=== PATIENT | female | born 1990 | race Caucasian/White ===

== ENCOUNTER → 2017-12-06 12:22 | Outpatient (CLI) | payer OTHER, SELFPAY ==
[2017-12-06 12:49] LABS: Absolute Neutrophil Count 8.1 X10^3/uL (2.0-7.7); Basophil# 0.01 X10^3/uL; Basophil% 0.1 % (0-1); Eosinophil# 0.02 X10^3/uL; Eosinophils% 0.2 % (0-5); Hematocrit 34.5 % (37-47); Hemoglobin 11.2 g/dl (12.0-15.0); Lymphocyte % 14.4 % (19-41); Mean Corp Hgb Conc 32.5 g/gl (32-36); Mean Corpuscular Hgb 29.2 pg (27.0-32.0); Mean Corpuscular Volume 90.1 fL (81-99); Mean Platelet Vol. 9.8 fl (6.2-12.0); Monocyte# 0.73 X10^3/uL; Neutrophil # 8.11 X10^3/uL (2.7-7.7); Neutrophil % 77.8 % (47-70); POSITIVE COUNT NO; POSITIVE DIFFERENTIAL NO; POSITIVE MORPHOLOGY NO; Platelet Count 248 K/mm3 (150-450); RBC Distribution Width CV 13.4 % (11.6-14.6); RBC Distribution Width SD 43.7 fl (35.1-43.9); Red Blood Count 3.83 M/mm3 (4.2-5.4); White Blood Count 10.4 K/mm3 (4.4-11.0)
[2017-12-06 13:29] LABS: Glucose Challenge Gest 1H 50g 155 mg/dL (70-140)
== END ==
PROVIDERS: Family Provider Family Medicine; PCP Family Medicine; Visit Provider Obstetrics & Gynecology
DX: Z34.80 Encounter for supervision of other normal pregnancy, unspecified trimester (principal)
CPT/HCPCS: 82950; 85025

== ENCOUNTER → 2017-12-06 18:51 | Outpatient (CLI) | payer OTHER, SELFPAY | PROVIDERS: Family Provider Family Medicine; PCP Family Medicine; Visit Provider Obstetrics & Gynecology | DX: O23.40 Unspecified infection of urinary tract in pregnancy, unspecified trimester (principal); Z3A.00 Weeks of gestation of pregnancy not specified | CPT/HCPCS: 87086; 87088 ==

== ENCOUNTER → 2017-12-13 07:02 | Outpatient (CLI) | payer OTHER, SELFPAY ==
[2017-12-13 08:44] LABS: Glucose GTT-Gestation. Fasting 70 mg/dL (<105)
[2017-12-13 08:48] LABS: Glucose GTT-Gestational 1 Hr 137 mg/dL (<190)
[2017-12-13 10:33] LABS: Glucose GTT-Gestational 2 Hr 142 mg/dL (<165)
[2017-12-13 11:47] LABS: Glucose GTT-Gestational 3 Hr 109 L (<145)
== END ==
PROVIDERS: Family Provider Family Medicine; PCP Family Medicine; Visit Provider Obstetrics & Gynecology
DX: O99.810 Abnormal glucose complicating pregnancy (principal); Z3A.00 Weeks of gestation of pregnancy not specified
CPT/HCPCS: 36415; 82951; 82952

== ENCOUNTER 2018-01-07 09:00 | Outpatient (CLI) | payer OTHER, SELFPAY ==
[2018-01-07 09:28] VITALS: BMI 38.0
[2018-01-07] MEDS: Dextrose 5%-Lactated Ringers 1,000 ML 1000 ML IV (10:38)
[2018-01-07] MEDS: Ondansetron 4 MG/2 ML Vial IV (10:42)
--- NOTE | 2018-01-08 08:10 | OB.TRI.NOTE ---
History of Present Illness Date of Service: 01/07/18 Was patient seen by the physician?: No Reason For Visit: DEHYDRATION Date of Service: 01/07/18 Final MARIE: 03/10/18 Gestational age: 31 Weeks and 2 Days History of Present Illness: contractions and nausea vomiting, dehydration Home Medications Medication Instructions Recorded Vits [Prenatabs FA] 1 tab PO DAILY 07/23/16 promethazine 12.5 mg tablet 12.5 mg PO Q6H PRN #60 tab 01/07/18 Allergies amoxicillin Adverse Reaction (Mild, Verified 12/26/17 15:37) Vomiting NST - FHR Rate Baby A Baseline: 140 Variability:: Moderate Accelerations:: 15 x 15 Decelerations:: None NST Reactive:: Yes FHR Category:: Category I Uterine Activity:: q3-5 then none Impression/Plan threatened ptl nausea vomiting dehydration- given IVFs and antiemetics, stable for dc to home cervix closed
== END 2018-01-07 12:40 | disposition home or self-care (01) ==
LOC: WPOUT 09:10 → WP 09:11
PROVIDERS: Family Provider Family Medicine; PCP Family Medicine; Visit Provider Obstetrics & Gynecology
DX: O60.03 Preterm labor without delivery, third trimester (principal); Z3A.31 31 weeks gestation of pregnancy; E86.0 Dehydration; R11.2 Nausea with vomiting, unspecified
CPT/HCPCS: 96361 ×2; 96374; 96375; 59025; 59050; 99218; G0378; J2405

== ENCOUNTER → 2018-02-13 17:03 | Outpatient (CLI) | payer OTHER, SELFPAY ==
[2018-02-13 18:45] LABS: Group B Strep DNA By PCR Negative (Negative); Internal Control PASS; Probe Check PASS; Specimen Processing Control PASS
== END ==
PROVIDERS: Visit Provider Obstetrics & Gynecology
DX: Z34.80 Encounter for supervision of other normal pregnancy, unspecified trimester (principal)
CPT/HCPCS: 87081; 87653

== ENCOUNTER 2018-03-09 20:10 | Inpatient (IN) | payer OTHER, SELFPAY ==
[2018-03-09 20:36] VITALS: BMI 31.6
[2018-03-09] MEDS: Lactated Ringers 1,000 ML 50 ML IV (20:45)
[2018-03-09 21:08] LABS: Hematocrit 32.1 % (37-47); Hemoglobin 10.2 g/dl (12.0-15.0); Mean Corp Hgb Conc 31.8 g/gl (32-36); Mean Corpuscular Hgb 26.1 pg (27.0-32.0); Mean Corpuscular Volume 82.1 fL (81-99); Mean Platelet Vol. 10.4 fl (6.2-12.0); Platelet Count 222 K/mm3 (150-450); RBC Distribution Width CV 15.7 % (11.6-14.6); RBC Distribution Width SD 46.3 fl (35.1-43.9); Red Blood Count 3.91 M/mm3 (4.2-5.4); White Blood Count 9.1 K/mm3 (4.4-11.0)
[2018-03-09 21:09] LABS: Scan Indicated on CBC? Y/N NO
--- NOTE | 2018-03-09 21:33 | PCM.HP.OB ---
- Problem List (1) SROM (spontaneous rupture of membranes) Status: Acute (2) History of delivery Status: Acute Comment: considering , 80% likelihood of success, education given, consent signed (3) Supervision of normal , antepartum Status: Acute Qualifiers: Comment: PRR MARIE 03/10/18 girl Chip peterson Andrei (4) UTI in , antepartum Status: Acute Comment: resolved (5) Abnormal glucose affecting Status: Acute Comment: 3 hour gtt WNL (6) History of complication Status: Acute Comment: previous child had FHT abnormality- doing well now. History Date of Admission: 03/09/18 Final MARIE: 03/10/18 Gestational age: 39 Weeks and 6 Days History of this : 27 yo @ 39w6d presents IAL with SROM clear fluid. she has been consented for a TOLAC and wishes to proceed. she has been consented for pitocin and agrees if indicated. Pertinent Past Medical History: Past Surgical History (Last Reviewed 03/07/18 @ 16:00 by Vikki Shah) History of delivery (Acute) S/P ACL surgery (Acute) Mom's Labs & Results 03/09/18 03/09/18 20:45 20:45 WBC 9.1 RBC 3.91 L Hgb 10.2 L Hct 32.1 L MCV 82.1 MCH 26.1 L MCHC 31.8 L RDW 15.7 H RDW Differential 46.3 H Plt Count 222 MPV 10.4 Blood Type Pending Antibody Screen Pending Course Did the patient receive Yes care? Labs Blood Type: A RH: POSITIVE RPR/VDRL/Syphilis Nonreactive Rubella status Immune HbSAg Negative Date Done: 10/04/17 Chlamydia Negative Gonorrhea Negative HIV/AIDS Non-Reactive Group B Strep: Negative Current Obstetrical History Gestational Diabetes No Incompetent Cervix No Infertility No IUGR No Macrosomia No Hypertension/Pre-eclampsia No Placenta Previa/Abruption No PTL/PROM No Uterine anomaly No Oligohydramnios No Polyhydramnios No Multiple gestation No Past Medical History Asthma No Diabetes No Hypertension No Heart disease No Mitral valve prolapse No Neurologic/Seizure disorder/ No Migraines Kidney disease No Liver disease No Varicosities No Clotting disorders/Hx of DVT No Thyroid Dysfunction No Other medical diseases No Psychiatric disorders Yes: h/o panic attacks Major trauma No Abnormal PAP smear No Sleep apnea No Mammogram in the last 2 years No Social History Marital Status: Alleged father Andrei Mcbride Smoking No Smoking Status Never smoker Allergies amoxicillin Adverse Reaction (Mild, Verified 03/09/18 20:34) Vomiting Current Medications Acetaminophen (Tylenol) 325 - 650 mg PO Q4H PRN PRN PRN Reason: PAIN OR FEVER >100.4F Al Hydroxide/Mg Hydroxide (Mylanta Ii) 15 - 30 ml PO Q4H PRN PRN PRN Reason: INDIGESTION Citric Acid/Sodium Citrate (Bicitra) 30 ml PO UD PRN Lactated Ringer's () 1,000 mls @ 50 mls/hr IV .Q20H DAVE Nalbuphine HCl (Nubain) 5 - 10 mg IV Q3H PRN PRN PRN Reason: PAIN (4-10) Ondansetron HCl (Zofran) 4 mg IV Q8H PRN PRN PRN Reason: NAUSEA Promethazine HCl (Phenergan) 6.25 - 12.5 mg IV Q4H PRN PRN; Protocol PRN Reason: IF NAUSEA PERSISTS Sodium Chloride () 5 - 15 ml IV UD DAVE Smoking Status: Never smoker Alcohol: None Number of Fetus(es): 1 - 150s moderate variability reactive no decels category I tracing toco q2-6 Review of Systems Constitutional: Denies: Chills, Fever, Weight Change HEENT: Denies: Head Aches, Sinus Congestion, Sinus Drainage Cardiovascular: Denies: Chest Pain, Palpitations Respiratory: Denies: Cough, Shortness of breath at rest, Sputum production Gastrointestinal: Denies: Abdominal Pain, Nausea, Vomiting Genitourinary: Denies: Dysuria Gynecological: Reports: Vaginal discharge Musculoskeletal: Denies: Joint Pain, Joint Tenderness Skin: Denies: Rash, Wounds Neurological: Denies: Numbness, Tingling, Focal weakness Psychiatric: Denies: Anxiety, Depression, Homicidal Ideations, Suicidal Ideations Hematologic/ Lymphatic: Denies: Easy Bruising, Easy Bleeding Physical Exam General: Alert Cardiovascular: Regular rate Lungs: Normal air movement Abdomen: Soft, Non Tender, Gravid Extremities:: No edema Estimated gestational size: Appropriate for gestational size Presentation: Cephalic Cervix Dilation (cm): 2.5 Station: -2 Effacement (%): 60 Assessment/Plan Active and Suspected Problems (Last Reviewed 03/07/18 @ 16:00 by Vikki Shah) SROM (spontaneous rupture of membranes) (Acute) 27 yo @ 39w6d presents IAL SROM TOLAC_ consent signed, proceed with expectant management. gbs neg. pit PRN
--- NOTE | 2018-03-10 00:44 | PCM.PN.BLA ---
Progress Note FHT 140s minimal to moderate variability reactive category I tracing now, no decels, ctx every 2-5 minutes strong intensity. cervical change to 4 cm, well applied and now a -1 to -2 station which is lower than previous, and patient wants epidural. she co constant low back pain even in between contractions, and in certain positions mainly standing co burning in the lower abdomen over her previous scar- on physical exam there is no tenderness to the site, no rebound or guarding, no reproducible pain. She denies the pain at present time. Discussed with patient that at this time the pain is likely due to position pulling on scar tissue. discussed with patient and okay with continuing expectant management.
[2018-03-10] MEDS: Ondansetron 4 MG/2 ML Vial IV (01:21)
[2018-03-10] MEDS: Lactated Ringers 1,000 ML 50 ML IV ×3 (01:21→09:22)
[2018-03-10] MEDS: fentaNYL-bupivacaine (epidural) 100 ML BAG EPIDURAL ×2 (01:39→05:43)
[2018-03-10] MEDS: Oxytocin 30 units/NS 500 ml 30 UNITS/500 ML IV.SOLN IV (03:16)
[2018-03-10] MEDS: Oxytocin 30 units/NS 500 ml 30 UNITS/500 ML IV.SOLN 334 UNITS IV (10:34)
[2018-03-10] MEDS: Oxytocin 30 units/NS 500 ml 30 UNITS/500 ML IV.SOLN 167 UNITS IV (11:04)
[2018-03-10 16:30] VITALS: BP 95/58; PULSE 91; RESP 16; TEMP 36.7; O2SAT 96
[2018-03-10 20:50] VITALS: BP 95/62; PULSE 101; RESP 18; TEMP 36.6
[2018-03-10] MEDS: Naproxen 250 MG Tablet PO (21:40)
[2018-03-11 01:00] VITALS: BP 97/54; PULSE 64; RESP 18; TEMP 36.8
[2018-03-11] MEDS: Acetaminophen 500 MG Tablet 1000 MG PO ×2 (01:21→13:48)
[2018-03-11 04:10] VITALS: BP 104/61; PULSE 78; RESP 18; TEMP 36.2
--- NOTE | 2018-03-11 05:05 | PCM.OB.VAG ---
- Problem List (1) SROM (spontaneous rupture of membranes) Status: Acute (2) History of delivery Status: Acute Comment: considering , 80% likelihood of success, education given, consent signed (3) Supervision of normal , antepartum Status: Acute Qualifiers: Comment: PRR MARIE 03/10/18 girl Chip peterson Andrei (4) UTI in , antepartum Status: Acute Comment: resolved (5) Abnormal glucose affecting Status: Acute Comment: 3 hour gtt WNL (6) History of complication Status: Acute Comment: previous child had FHT abnormality- doing well now. Vaginal Delivery Maternal Presentation: Active Labor, Spontaneous Rupture of Membranes 27 yo @ 40 weeks presents IAL SROM with clear fluid. she was consented for a Method of Induction: Pitocin Amniotic Membrane Rupture Type: Spontaneous at home Amniotic Fluid Description: Clear Final MARIE: 03/10/18 Gestational age: 40 Weeks and 0 Days Date of Procedure: 03/10/18 Pre-Operative Diagnosis: ial Post-Operative Diagnosis: same Surgery/ Procedure Performed: - - Type of Anesthesia: Epidural Description of Procedure: Patient began pushing and delivered the head in the TERRY presentation. The head was delivered atraumatically . The anterior and posterior shoulders delivered without complication followed by the rest of the infant and the was placed on the maternal abdomen. Delayed cord clamping was employed for approximately 60 seconds. Cord was clamped and cut and gentle traction was applied to the cord and the placenta delivered spontaneously immediately following it was noted to be intact with three-vessel cord. The perineum and vagina were inspected and [noted to have a small 1st degree perineal laceration that was repaired with 3-0 vicryl rapide. EBL was 200 cc. uterine scar was explored and noted to be intact. Patient and infant tolerated delivery well. Presentation: BRIJESH Placental Delivery Description: Spontaneous Placenta Disposition: [facility] Cord Vessel Description: 3 Vessels Cord Entanglement: None Estimated Blood Loss: 200 A gender: Female Episiotomy Description: None Laceration: Perineal Extension/lac, 1st degree Medications given after delivery: IV Pitocin Complications: None
--- NOTE | 2018-03-11 07:40 | PCM.PN.OB ---
Patient Problems: Active and Suspected Problems (Last Reviewed 03/07/18 @ 16:00 by Vikki Shah) SROM (spontaneous rupture of membranes) (Acute) Subjective: Doing well. No current CP, SOB. Normal lochia. Tylenol for discomfort. . - Physical Exam General: Alert, Oriented x3 Abdomen: Soft, Non Tender, - - FF below U Vital Signs Temp Pulse Resp BP Pulse Ox 97.1 F L 78 18 104/61 96 03/11/18 04:10 03/11/18 04:10 03/11/18 04:10 03/11/18 04:10 03/10/18 16:30 Oxygen Delivery Method Room Air Weight: 173 lb 4.533 oz Body Mass Index (BMI) 31.6 Intake and Output for Last 24 Hours 03/09/18 03/10/18 03/11/18 23:59 23:59 23:59 Intake Total 3191 / 3191 Output Total 2850 / 2850 Balance 341 / 341 Medical Necessity - Tobacco Use Smoking Status: Never smoker Assessment/Plan Active and Suspected Problems (Last Reviewed 03/07/18 @ 16:00 by Vikki Shah) SROM (spontaneous rupture of membranes) (Acute) PPD#1: Routine care. OTC tylenol for discomfort. Home today.
[2018-03-11 07:42] VITALS: BP 104/60; BP 104/62; PULSE 82; PULSE 86; RESP 16; TEMP 36.3; TEMP 36.7
--- NOTE | 2018-03-11 07:42 | PCM.DCVAG ---
Additional Instructions: If you experience any of the following, contact your healthcare provider. Bleeding that soaks a pad every hour for 2 hours Fever 100.4 or higher Unrelieved incision or abdominal pain Swelling, redness, discharge or bleeding from your incision or episiotomy site Your incision begins to separate Problems urinating (including inability to urinate or burning while urinating). Visual changes Severe headache Flu-like symptoms Pain or redness in one of both of your breasts Pain, warmth, tenderness or swelling in your legs, especially the calf area Frequent nausea and vomiting Symptoms of depression or anxiety If you experience any of the following, call 911 or go to the nearest Emergency Room. Chest pain Problems breathing Seizure activity Partial or complete paralysis of a body part, slurred speech, weakness or drooping of the face, or a sudden inability to walk or hold your balance Allergies/Adverse Reactions: Allergies amoxicillin Adverse Reaction (Mild, Verified 03/09/18 20:34) Vomiting Medications to take at Discharge Vits [Prenatabs FA] 1 tab PO DAILY 07/23/16 Primary Care Physician: Gabino Mercado MD [Primary Care Provider] -
--- NOTE | 2018-03-11 07:44 | DCINST_ITS ---
Additional Instructions: If you experience any of the following, contact your healthcare provider. * Bleeding that soaks a pad every hour for 2 hours * Fever 100.4 or higher * Unrelieved incision or abdominal pain * Swelling, redness, discharge or bleeding from your incision or episiotomy site * Your incision begins to separate * Problems urinating (including inability to urinate or burning while urinating) . * Visual changes * Severe headache * Flu-like symptoms * Pain or redness in one of both of your breasts * Pain, warmth, tenderness or swelling in your legs, especially the calf area * Frequent nausea and vomiting * Symptoms of depression or anxiety If you experience any of the following, call 911 or go to the nearest Emergency Room. * Chest pain * Problems breathing * Seizure activity * Partial or complete paralysis of a body part, slurred speech, weakness or drooping of the face, or a sudden inability to walk or hold your balance Allergies/Adverse Reactions: Allergies amoxicillin Adverse Reaction (Mild, Verified 03/09/18 20:34) Vomiting Medications to take at Discharge Vits [Prenatabs FA] 1 tab PO DAILY 07/23/16 Primary Care Physician: Gabino Mercado MD [Primary Care Provider] -
[2018-03-11] MEDS: Naproxen 250 MG Tablet PO (08:40)
--- NOTE | 2018-03-13 07:45 | PCM.HP.OB ---
- Problem List (1) SROM (spontaneous rupture of membranes) Status: Acute (2) History of delivery Status: Acute Comment: considering , 80% likelihood of success, education given, consent signed (3) Supervision of normal , antepartum Status: Acute Qualifiers: Comment: PRR MARIE 03/10/18 girl Chip peterson Andrei (4) UTI in , antepartum Status: Acute Comment: resolved (5) Abnormal glucose affecting Status: Acute Comment: 3 hour gtt WNL (6) History of complication Status: Acute Comment: previous child had FHT abnormality- doing well now. History Date of Admission: 03/09/18 Final MARIE: 03/10/18 Gestational age: 40 Weeks and 3 Days Allergies amoxicillin Adverse Reaction (Mild, Verified 03/09/18 20:34) Vomiting Smoking Status: Never smoker Alcohol: None Physical Exam Vitals: Vital Signs Temp Pulse Resp BP Pulse Ox 98.0 F 86 16 104/62 96 03/11/18 07:42 03/11/18 07:42 03/11/18 07:42 03/11/18 07:42 03/10/18 16:30
== END 2018-03-11 14:15 | disposition home or self-care (01) | DRG 775 ==
PROVIDERS: Admitting Provider Obstetrics & Gynecology; Family Provider Family Medicine; PCP Family Medicine; Visit Provider Obstetrics & Gynecology
DX: O70.0 First degree perineal laceration during delivery (principal); O34.219 Maternal care for unspecified type scar from previous cesarean delivery; Z37.0 Single live birth; Z3A.39 39 weeks gestation of pregnancy
CPT/HCPCS: 59025; 59050; 85027; 86850; 86900; 99218; J7120; G0378; J2405

== ENCOUNTER → 2018-04-21 08:24 | Outpatient (CLI) | payer OTHER, SELFPAY ==
[2018-04-25 14:03] LABS: HPV Reflexed? NOT INDICATED
== END ==
PROVIDERS: Family Provider Family Medicine; PCP Family Medicine; Visit Provider Obstetrics & Gynecology
DX: Z12.4 Encounter for screening for malignant neoplasm of cervix (principal)
CPT/HCPCS: 88175; G0145